=== PATIENT | male | born 1955 | race Caucasian/White ===

== ENCOUNTER 2016-11-01 12:23 | Emergency (ER) | payer BC, OTHER ==
[~2016-11-01] VITALS: Ht 185.4 cm; Wt 122.9 kg
[~2016-11-01 12:23] MED LIST: ATEN50TA8 PO; SIMV20TA2 PO
[2016-11-01 12:29] VITALS: Ht 185.4 cm; Wt 122.9 kg
--- NOTE | 2016-11-01 13:18 | DIAGNOSTIC IMAGING REPORT ---
RIGHT SHOULDER 3 VIEWS HISTORY: R shoulder pain Right COMPARISON: None. FINDINGS: There is no fracture or dislocation. Soft tissues are unremarkable. No radiopaque foreign bodies. IMPRESSION: No fractures. Electronically signed by: Jaswinder Ramey M.D. 11/01/2016 1:17 PM Dictated Date/Time: 11/01/2016 1:16 PM
--- NOTE | 2016-11-01 13:19 | DIAGNOSTIC IMAGING REPORT ---
RIGHT ELBOW MIN 3 VIEWS ROUTINE CLINICAL HISTORY: R elbow pain Right trauma. Pain. COMPARISON: None. DISCUSSION: The bones and joint spaces appear intact. There is no evidence of fracture, dislocation or bony disease. There is no evidence for soft tissue swelling. IMPRESSION: Negative study. Electronically signed by: Davidson Garcia M.D. 11/01/2016 1:18 PM Dictated Date/Time: 11/01/2016 1:17 PM
[2016-11-01 13:46] VITALS: BP 144/86; PULSE 60; TEMP 36.5; O2SAT 97
--- NOTE | 2016-11-01 16:35 | EMERGENCY ROOM VISIT NOTE ---
History First contact with patient: 12:35 Chief Complaint: FALL Stated Complaint: FELL ON ELBOW AND SHOULDER-WORK RELATED INJURY History of Present Illness The patient is a 61 year old male who presents to the Emergency Room with complaints of injuries after slipping on a trailer tongue and falling to the ground. The patient reports that this injury happened at work at approximately 10:30 AM. He was attempting to crawl up onto a flatbed truck by stepping on a trailer tongue and slipped, falling onto his right elbow and shoulder. He denies any head injury, neck pain or back pain. He reports that the pain does extend into the back of the shoulder. He denies any paresthesias or numbness of the right hand or fingers. He denies any other injuries from the fall, including back pain, pelvic pain or other extremity injuries, and rates his discomfort a 6 out of 10. The patient is left-hand dominant. Review of Systems 10 system review was performed and was negative except for pertinent positives and negatives as indicated in history of present illness Past Medical/Surgical History Medical Problems: (1) Ac Myocardial Infarct,Subendo Infarct,Initial Epis (2) Carpal Tunnel Syndrome (3) Coronary Atherosclerosis Of [place] Coronary Vessel (4) Hypertension Nos (5) Migraine Family History FH: heart disease FH: hypertension Social History Smoking Status: Never Smoker Alcohol Use: none Marital Status: Occupation Status: employed Current/Historical Medications Scheduled Atenolol (Tenormin), 50 MG PO DAILY Simvastatin (Zocor), 20 MG PO QPM Allergies Coded Allergies: No Known Allergies (Verified Allergy, Unknown, __, 05/11/09) Physical Exam Vital Signs Date Time Temp Pulse Resp B/P (MAP) Pulse Ox O2 Delivery O2 Flow Rate FiO2 11/01/16 13:46 36.5 60 18 144/86 97 11/01/16 12:29 36.5 60 18 144/86 97 Room Air Physical Exam CONSTITUTIONAL: Healthy and well nourished. Alert and oriented X 3 with positive affect. Patient does not appear in any significant distress. HEENT: Normocephalic, atraumatic. Pupils equal, round and reactive. No hemotympanum, epistaxis, subconjunctival hemorrhage, raccoon's eyes or Cardenas sign. NECK: Full active range of motion without discomfort. RESPIRATORY: Clear to auscultation bilaterally with no wheezing, crackles, rhonchi or stridor. CARDIOVASCULAR: Regular rate and rhythm with no murmurs, rubs or gallops. GASTROINTESTINAL: Bowel sounds present in all quadrants. Soft and nontender to palpation. MUSCULOSKELETAL: Complaining comprehensive musculoskeletal exam was performed. Positive findings include tenderness to palpation over the right distal clavicle , acromioclavicular joint and general shoulder region. Range of motion of the shoulder is worsened beyond a proximal base 75 of abduction and forward flexion. The patient has edema over the posterior elbow with tenderness to palpation over the olecranon. Otherwise he has relatively full range of motion of the elbow without significant discomfort. No focal tenderness to palpation through the wrist, and distal pulses are intact. Otherwise remaining musculoskeletal exam is normal, including no tenderness to palpation through the ribs or central thoracolumbar spine. INTEGUMENTARY: No rash or other significant dermatologic conditions noted. NEUROLOGIC: Right hand and fingers are sensory intact. Right deltoid sensation is intact. Medical Decision & Procedures ER Provider Diagnostic Interpretation: My interpretation of right shoulder x-rays does not show any acute fractures or dislocation. My interpretation of right elbow x-rays also does not show any acute fractures or dislocation. Radiologist reports were also reviewed with concurrence. ED Course Patient history and physical exam were performed. Nurse's notes were reviewed. Vital signs were reviewed and normal. The patient refused any analgesics. An ice pack was provided. X-rays of the right shoulder and elbow were normal. The patient was encouraged to intermittently apply ice to areas of discomfort. Ibuprofen and Tylenol in alternating fashion as needed for pain relief. The patient refused any prescription analgesics. He was provided a note for light duty for the next 5 days, and instructed to follow-up with his Worker's Compensation approved orthopedic surgeon if symptoms are not improving within the next 5 days. The patient was happy with plan of care, and voiced understanding of all discharge instructions, rating his pain a 3 out of 10 at the time of discharge. Medical Decision Impression Primary Impression: Right shoulder strain Additional Impressions: Contusion of right elbow Fall from stationary vehicle Work related injury Departure Information Referrals No Doctor, Assigned (PCP) Patient Instructions My [facility] Problem Qualifiers Primary Impression: Right shoulder strain Encounter type: initial encounter Qualified Codes: S46.911A - Strain of unspecified muscle, fascia and tendon at shoulder and upper arm level, right arm , initial encounter Additional Impressions: Contusion of right elbow Encounter type: initial encounter Qualified Codes: S50.01XA - Contusion of right elbow, initial encounter Fall from stationary vehicle Encounter type: initial encounter Qualified Codes: W17.89XA - Other fall from one level to another, initial encounter
== END 2016-11-01 13:45 | disposition home or self-care (01) ==
LOC: C.EDB 12:24 → C.EDD 13:45
DX: S49.91XA Unspecified injury of right shoulder and upper arm, initial encounter (principal); S50.01XA Contusion of right elbow, initial encounter; W01.0XXA Fall on same level from slipping, tripping and stumbling without subsequent striking against object, initial encounter; I25.10 Atherosclerotic heart disease of native coronary artery without angina pectoris; I10 Essential (primary) hypertension; I25.2 Old myocardial infarction; Z79.899 Other long term (current) drug therapy; Z82.49 Family history of ischemic heart disease and other diseases of the circulatory system